=== PATIENT | female | born 1995 | race Caucasian/White ===

== ENCOUNTER 2019-06-22 13:27 | Emergency (ER) | payer OTHER ==
[~2019-06-22] VITALS: Ht 162.6 cm; Wt 56.2 kg
--- OUTSIDE RECORDS SUMMARY | 2019-06-22 13:29 | XMS REPORT ---
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 Allergies, Adverse Reactions, Alerts Allergy Name Allergy Type Status Severity Reaction(s) Onset Date Inactive Date Treating Clinician Comments adhesive tape DA Active CA 2018-06-05 00:00:00 latex DA Active CA 2018-06-04 00:00:00 No Known Allergies DA Active U 2014-12-12 00:00:00 Medications This patient has no known medications. Results Test Description Test Time Test Comments Text Results Atomic Results Result Comments CHLAMYDIA GC DNA BY PCR 2019-03-18 04:07:00 C. TRACHOMATIS DNA BY PCR (test code=CHLAMTDNA) Negative Negative N. GONORRHOEAE DNA BY PCR (test code=NGONORDNA) Negative Negative Performed At: [facility] [place] [address] [id number] adam Encinas MD Ph:[phone] BASIC METABOLIC [id number] 20:05:00* Test Item Value Reference Range Comments SODIUM (test code=NA) 141 mEq/L 134-147 POTASSIUM (test code=K) 3.5 mEq/L 3.4-5.0 CHLORIDE (test code=CL) 109 mEq/L 100-108 CARBON DIOXIDE (test code=CO2) 27 mEq/L 21-33 ANION GAP (test code=GAP) 9 0-20 GLUCOSE (test code=GLU) 78 mg/dL 70-110 BLOOD UREA NITROGEN (test code=BUN) 14 mg/dL 7-18 GLOMERULAR FILTRATION RATE (test code=GFR) 68.1 110-120 Units of measure=ml/min/1.73 m2 CREATININE (test code=CREAT) 1.0 mg/dL 0.6-1.3 CALCIUM (test code=CA) 9.3 mg/dL 8.0-10.5 BASIC METABOLIC [id number] 20:02:00* Test Item Value Reference Range Comments SODIUM (test code=NA) 141 mEq/L 134-147 POTASSIUM (test code=K) 3.5 mEq/L 3.4-5.0 CHLORIDE (test code=CL) 109 mEq/L 100-108 CARBON DIOXIDE (test code=CO2) 27 mEq/L 21-33 ANION GAP (test code=GAP) 9 0-20 GLUCOSE (test code=GLU) 78 mg/dL 70-110 BLOOD UREA NITROGEN (test code=BUN) 14 mg/dL 7-18 GLOMERULAR FILTRATION RATE (test code=GFR) 110-120 CREATININE (test code=CREAT) mg/dL 0.6-1.3 CALCIUM (test code=CA) 9.3 mg/dL 8.0-10.5 URINALYSIS [id number] 16:31:00* Test Item Value Reference Range Comments UA COLOR (test code=COLU) YELLOW YEL/STRAW UA APPEARANCE (test code=APPU) CLOUDY CLEAR UA GLUCOSE DIPSTICK (test code=DGLUU) NEGATIVE NEGATIVE UA BILIRUBIN DIPSTICK (test code=BILU) NEGATIVE NEGATIVE UA KETONE DIPSTICK (test code=KETU) 1+ NEGATIVE UA SPECIFIC GRAVITY (test code=SGU) 1.020 1.005-1.030 UA BLOOD DIPSTICK (test code=DEMIAN) 3+ NEGATIVE UA PH DIPSTICK (test code=NEY) 8.0 5.0-7.0 UA PROTEIN DIPSTICK (test code=PROU) 1+ NEGATIVE UA UROBILINIOGEN DIPSTICK (test code=URO) 2.0 mg/dL 0.2-1.0 UA NITRITE DIPSTICK (test code=MEREDITH) NEGATIVE NEGATIVE UA LEUKOCYTE ESTERASE DIPSTICK (test code=LEUU) 1+ NEGATIVE UA RBC (test code=RBCU) 21-50 RBC/HPF 0-3 UA WBC NO REFLEX (test code=WBCUCL) 4-9 WBC/HPF 0-3 UA BACTERIA (test code=BACU) TRACE /HPF NONE SEEN UA SQUAMOUS CELLS (test code=SQU) 6-10 /HPF NONE SEEN UA MUCUS (test code=MUCU) 4+ /LPF NONE SEEN COMMENTS: Clean Catch- DUP AB/PEL/SC/[id number] 15:59:00 [facility]: [facility] 1995 Age/S: 23 / F [address] [place] [address] Unit #: [id number] Loc: [place] [address] Phys: Petros Vaughn MD Acct: [id number] Di s Date: Status: REG ER PHONE #: Exam Date: 03/14/2019 1543 FAX #: Reason: PELVIC PAIN EXAMS: CPT CODE: [id number] DUP AB/PEL/SC /LTD [id number] PROCEDURE: PELVIC ULTRASO UND INDICATION: Pelvic pain COMPARISON: 06/05/2018 TECHNIQUE: Grayscale, color and Doppler transabdominal and tr ansvaginal imaging of the pelvis was performed with standard technique. T ransvaginal ultrasound is obtained for further evaluation of the endometri um and adnexal regions. FINDINGS: UTERUS: 93 x 42 x 57 mm. Nabothian cysts in the cervix. Endometrial thickness 6 mm. No focal uterine mass. RIGHT OVARY: 26 x 19 x 20 mm. Normal blood flow on Doppler.. LEFT OVARY: 35 x 19 x 21 mm. Normal blood flow on Dopple r.. BLADDER: Unremarkable. Comments: No adnexal mass es. Minimal free intraperitoneal fluid. IMPRESSION: Minimal free fluid in the pelvis, otherwise unremarkable SL: [id number] at 8503 Reported and signed by: Monroe Espinosa M.D. CC: Technologist: Laxmi Corral RDMS() Trnscb Da te/Time: 03/14/2019 (7430) [email or web address] Orig Print D/T: S: 0 03/14/2019 (5860) Probe: PAGE 1 Signed Report - US TRANSVAGINAL NON [id number] 15:59:00 Name: CAROLINE [facility]ANGELIST[facility] : 1995 Age/S: 23 / F [address] [place] [address] Unit #: [id number] Loc: [place] [address] Phys: Chaitanya Vaughn MD Acct: [id number] Dis Date: Status: REG ER PHONE #: [phone] Exam Date: 03/14/2019 1543 FAX #: [phone] Reason: PELVIC PAIN EXAMS: CPT CODE: [id number] [place] [id number] PROCEDURE: PELVIC ULTRASOUND INDICATION: Pelvic pain COMPARISON: 06/05/2018 TECHNIQUE: Grayscale, color and Doppler transabdominal and transvaginal imaging of the pelvis was performed with standard technique. Transvaginal ultrasound is obtained for further evaluation of the endometrium and adnexal regions. FINDINGS: UTERUS: 93 x 42 x 57 mm. Nabothian cysts in the cervix. Endometrial thickness 6 mm. No focal uterine mass. RIGHT OVARY: 26 x 19 x 20 mm. Normal blood flow on Doppler.. LEFT OVARY: 35 x 19 x 21 mm. Normal blood flow on Doppler.. BLADDER: Unremarkable. Comments: No adnexal masses. Minimal free intraperitoneal fluid. IMPRESSION: Minimal free fluid in the pelvis, otherwise unremarkable SL: [id number] at 1559 Reported and signed by: Monroe Espinosa M.D. CC: Technologist: Laxmi Corral RDMS() Trnscb Da te/Time: 03/14/2019 (1559) t.[email or web address] Orig Print D/T: S: 0 03/14/2019 (1603) Probe: [id number] PAGE 1 Signed Report - US PELVIS [id number] 15:59:00 Name: CAROLINE EVANGELISTA : 1995 Age/S: 23 / F [address] [place] [address] Unit #: [id number] Loc: [place] [address] Phys: Anuj March Acct: [id number] Dis Date: Status: REG ER PHONE #: [phone] Exam Date: 03/14/2019 1542 FAX #: [phone] Reason: Pelvic Pain EXAMS: CPT CODE: [id number] US PELVIS COMPLETE [id number] PROCEDURE: PELVIC ULTRASOUND INDICATION: Pelvic pain COMPARISON: 06/05/2018 TECHNIQUE: Grayscale, color and Doppler transabdominal and transvaginal imaging of the pelvis was performed with standard technique. Transvaginal ultrasound is obtained for further evaluation of the endometrium and adnexal regions. FINDINGS: UTERUS: 93 x 42 x 57 mm. Nabothian cysts in the cervix. Endometrial thickness 6 mm. No focal uterine mass. RIGHT OVARY: 26 x 19 x 20 mm. Normal blood flow on Doppler.. LEFT OVARY: 35 x 19 x 21 mm. Normal blood flow on Doppler.. BLADDER: Unremarkable. Comments: No adnexal masses. Minimal free intraperitoneal fluid. IMPRESSION: Minimal free fluid in the pelvis, otherwise unremarkable SL: [id number] at 0082 Reported and signed by: Monroe Espinosa M.D. CC: Anuj MURRAY Technologist: Laxmi Corral RDMS(AB) Trnscb Da te/Time: 03/14/2019 (1533) IldefonsoG Orig Print D/T: S: 0 03/14/2019 (0167) Probe: PAGE 1 Signed Report HEPATIC FUNCTION [id number] 15:38:00* Test Item Value Reference Range Comments TOTAL PROTEIN (test code=PROT) 7.2 g/dL 6.4-8.2 ALBUMIN (test code=ALB) 4.00 g/dL 3.4-5.0 BILIRUBIN TOTAL (test code=BILT) 1.00 mg/dL 0.0-1.0 BILIRUBIN DIRECT (test code=BILD) 0.20 MG/DL 0.0-0.30 BILIRUBIN INDIRECT (test code=BILIND) 0.80 MG/DL SGOT/AST (test code=AST) 12 IUnit/L 15-37 SGPT/ALT (test code=ALT) 17 IUnit/L 15-65 ALKALINE PHOSPHATASE TOTAL (test code=ALKP) 57 IUnit/L 20-125 [id number] 15:38:00* Test Item Value Reference Range Comments LIPASE (test code=LIP) 59 IUnit/L 73-393 HCG SERUM [id number] 15:38:00* Test Item Value Reference Range Comments HCG SERUM QUAL (test code=HCGQL) SERUM NEGATIVE NEGATIVE HEPATIC FUNCTION [id number] 15:31:00* Test Item Value Reference Range Comments TOTAL PROTEIN (test code=PROT) g/dL 6.4-8.2 ALBUMIN (test code=ALB) g/dL 3.4-5.0 BILIRUBIN TOTAL (test code=BILT) mg/dL 0.0-1.0 BILIRUBIN DIRECT (test code=BILD) MG/DL 0.0-0.30 SGOT/AST (test code=AST) IUnit/L 15-37 SGPT/ALT (test code=ALT) IUnit/L 15-65 ALKALINE PHOSPHATASE TOTAL (test code=ALKP) IUnit/L 20-125 [id number] 15:31:00* Test Item Value Reference Range Comments LIPASE (test code=LIP) IUnit/L 73-393 HCG SERUM [id number] 15:31:00* Test Item Value Reference Range Comments HCG SERUM QUAL (test code=HCGQL) SERUM NEGATIVE NEGATIVE CBC W/AUTO [id number] 15:20:00* Test Item Value Reference Range Comments WHITE BLOOD CELL (test code=WBC) 8.37 x10 3/uL 4.5-11.0 RED BLOOD CELL (test code=RBC) 4.66 x10 6/uL 3.54-5.02 HEMOGLOBIN (test code=HGB) 14.0 g/dL 11.0-15.0 HEMATOCRIT (test code=HCT) 42.4 % 33.0-45.0 MEAN CELL VOLUME (test code=MCV) 91.0 fL 81.0-99.0 MEAN CELL HGB (test code=MCH) 30.0 pg 27.0-33.0 MEAN CELL HGB CONCETRATION (test code=MCHC) 33.0 g/dL 33.0-37.0 RED CELL DISTRIBUTION WIDTH CV (test code=RDW) 12.3 % 11.5-14.5 RED CELL DISTRIBUTION WIDTH SD (test code=RDW-SD) 41.1 fL 37.0-54.0 PLATELET COUNT (test code=PLT) 194 x10 3/uL 150-400 MEAN PLATELET VOLUME (test code=MPV) 11.3 fL 7.0-9.0 NEUTROPHIL % (test code=NT%) 63.4 % 56.0-77.0 IMMATURE GRANULOCYTE % (test code=IG%) 0.4 % 0.0-2.0 LYMPHOCYTE % (test code=LY%) 28.0 % 14.0-32.0 MONOCYTE % (test code=MO%) 5.7 % 4.8-9.0 EOSINOPHIL % (test code=EO%) 1.7 % 0.3-3.7 BASOPHIL % (test code=BA%) 0.8 % 0.0-2.0 NUCLEATED RBC % (test code=NRBC%) 0.2 % 0-0 NEUTROPHIL # (test code=NT#) 5.31 x10 3/uL 2.0-7.6 IMMATURE GRANULOCYTE # (test code=IG#) 0.03 x10 3/uL 0.00-0.03 LYMPHOCYTE # (test code=LY#) 2.34 x10 3/uL 1.0-3.8 MONOCYTE # (test code=MO#) 0.48 x10 3/uL 0.1-0.8 EOSINOPHIL # (test code=EO#) 0.14 x10 3/uL 0.0-0.2 BASOPHIL # (test code=BA#) 0.07 x10 3/uL 0.0-0.2 NUCLEATED RBC # (test code=NRBC#) 0.02 x10 3/uL 0.0-0.1 MANUAL DIFF REQUIRED (test code=MDIFF) NO
[2019-06-22] MEDS ORDERED: LIDOCAINE HCL 1% LOCAL INJ 20 ML VIAL INJ ONE (13:45)
[2019-06-22] MEDS ORDERED: CLINDAMYCIN HCL 150 MG CAP PO ONE (13:45)
[2019-06-22] MEDS ORDERED: HYDROCODONE/APAP 5MG-325MG TAB PO ONE (14:00)
[2019-06-22] MEDS ORDERED: CLINDAMYCIN PHOS 600 MG/ 4 ML VIAL IM ONE (14:00)
--- NOTE | 2019-06-22 14:00 | NUR ---
DR MUNIZ AT BEDSIDE FOR LRQ DENTAL BLOCK, PT TOLERATED WELL, PT VOICES NO COMPLAINTS AT THIS TIME
[2019-06-22] MEDS ORDERED: CLINDAMYCIN HC150 MG PO (14:16)
[2019-06-22 14:41] VITALS: BP 154/87
== END 2019-06-22 14:49 | disposition home or self-care (01) ==
LOC: FSED 13:27
DX: K08.89 Other specified disorders of teeth and supporting structures (principal)
CPT/HCPCS: 64400; 99283; J2001